=== PATIENT | male | born 1965 | race Caucasian/White ===

== ENCOUNTER 2022-04-15 18:51 | Observation (INO) ==
[2022-04-15] MEDS ORDERED: Iopamidol - 370 500 ML MLS IVP ONE (19:29)
[2022-04-15 20:17] LABS: Basophils # 0.1 K/mcL (0.0-0.2); Basophils % 0.3 %; Eosinophils # 0.1 K/mcL (0.0-0.6); Eosinophils % 0.6 %; Hematocrit 39.9 % (37.5-50.1); Hemoglobin 13.8 g/dL (12.9-16.9); Immature Granulocytes % 0.6 % (0-4); Lymphocytes # 1.4 K/mcL (0.6-4.6); Lymphocytes % 8.1 %; Mean Corpuscular HGB Conc 34.6 g/dL (31.6-35.5); Mean Corpuscular Hemoglobin 31.9 pg (28.0-33.3); Mean Corpuscular Volume 92.4 fL (83.0-100.0); Mean Platelet Volume 11.8 fL (9.4-12.4); Monocytes # 1.2 K/mcL (0.0-1.3); Neutrophils # 14.2 K/mcL (1.6-8.9); Platelet Count 155 K/mcL (140-400); Red Blood Count 4.32 M/mcL (4.19-5.50); Red Cell Distribution Width 13.2 % (11.5-14.5); Segmented Neutrophils % 83.4 %
[2022-04-15] MEDS ORDERED: Aspirin 81 MG TAB.CHEW PO ONE (20:28)
[2022-04-15 20:37] LABS: BUN/Creatinine Ratio 17 (6-26); Blood Urea Nitrogen 19 mg/dL (6-20); Calcium 8.8 mg/dL (8.6-10.3); Carbon Dioxide 25 mEq/L (23-29); Chloride 106 mEq/L (98-107); Glucose 215 mg/dL (70-105); Osmolality,Calculated 291 (280-300); Potassium 3.7 mEq/L (3.5-5.1); Sodium 136 mEq/L (136-145); Troponin I < 0.03 ng/mL (< 0.04)
[2022-04-15 20:57] LABS: Prothrombin Time 11.4 Seconds (9.4-12.1)
[2022-04-15 21:15] LABS: Alanine Aminotransferase 27 Units/L (7-52); Albumin 4.1 g/dL (3.5-5.7); Alkaline Phosphatase 59 Units/L (34-104); Aspartate Amino Transferase 21 Units/L (13-39); Bilirubin,Direct 0.1 mg/dL (0.0-0.2); Bilirubin,Indirect 0.6 mg/dL (0.0-1.0); Bilirubin,Total 0.7 mg/dL (0.3-1.0); Globulin 2.1 g/dL (2.4-3.5); Lipase 22 Units/L (11-82); Total Protein 6.2 g/dL (6.4-8.9)
[2022-04-15 21:17] LABS: Amphetamine Screen,Urine Negative ng/mL (Cutoff=1000); Barbiturate Screen,Urine Negative ng/mL (Cutoff=200); Benzodiazepines Screen,Urine Positive ng/mL (Cutoff=200); Cannabinoid Screen,Urine Positive ng/mL (Cutoff = 50); Cocaine Screen,Urine Negative ng/mL (Cutoff= 300); Opiate Screen,Urine Negative ng/mL (Cutoff=300); Phencyclidine Screen,Urine Negative ng/mL (Cutoff=25)
[2022-04-15] MEDS: Nitroglycerin 0.4 MG TAB.SUBL SL SCH ×3 (22:07→22:19)
[2022-04-16] MEDS ORDERED: Acetaminophen 325 MG TABLET PO PRN (01:27)
[2022-04-16] MEDS ORDERED: Ondansetron 4 MG/2 ML VIAL IVP PRN (01:27)
[2022-04-16] MEDS ORDERED: Naloxone 0.4 MG/ML INJ IVP PRN (01:27)
[2022-04-16] MEDS ORDERED: Dextrose Gel 15 GM/37.5 ML TUBE PO PRN ×2 (01:35)
[2022-04-16] MEDS ORDERED: D5% in Water 1,000 ML IVC PRN (01:35)
[2022-04-16] MEDS ORDERED: *HR* Dextrose 50 % in Water (Syg) 50 ML SYRINGE IVP PRN (01:35)
[2022-04-16] MEDS ORDERED: Fluconazole 400 MG/200 ML 400 MG/200 ML BAG IVPB SCH ×2 (02:00)
[2022-04-16] MEDS: Insulin LISPRO 300 UNITS/3 ML VIAL SUBQ SCH ×5 (03:30→18:35)
[2022-04-16] MEDS: Insulin DETEMIR 100 UNIT/ML X5UNITS SUBQ SCH ×2 (03:30→21:11)
[2022-04-16 04:02] LABS: Hematocrit 42.1 % (37.5-50.1); Hemoglobin 13.9 g/dL (12.9-16.9); Mean Platelet Volume 11.5 fL (9.4-12.4); Platelet Count 159 K/mcL (140-400); Red Blood Count 4.48 M/mcL (4.19-5.50); Red Cell Distribution Width 13.3 % (11.5-14.5); White Blood Count 9.5 K/mcL (4.3-11.1)
[2022-04-16 04:21] LABS: BUN/Creatinine Ratio 23 (6-26); Blood Urea Nitrogen 21 mg/dL (6-20); Calcium 8.8 mg/dL (8.6-10.3); Carbon Dioxide 27 mEq/L (23-29); Chloride 105 mEq/L (98-107); Glucose 152 mg/dL (70-105); Osmolality,Calculated 300 (280-300); Potassium 3.5 mEq/L (3.5-5.1); Sodium 142 mEq/L (136-145)
[2022-04-16 04:22] LABS: Troponin I < 0.03 ng/mL (< 0.04)
[2022-04-16] MEDS: Gabapentin 300 MG CAPSULE PO SCH (20:40)
[2022-04-16] MEDS: atenoloL 25 MG TABLET PO SCH (20:41)
[2022-04-16] MEDS: clonazePAM 1 MG TABLET PO SCH (20:41)
[2022-04-17 04:28] VITALS: O2SAT 95
[2022-04-17] MEDS ORDERED: Regadenoson 0.4 MG/5 ML SYRINGE IVP ONE (06:38)
[2022-04-17] MEDS ORDERED: Multivit/Ca/Min/Fe/FA 1 TAB TABLET PO SCH (09:00)
[2022-04-17] MEDS: Insulin LISPRO 300 UNITS/3 ML VIAL SUBQ SCH ×2 (09:08→12:25)
[2022-04-17] MEDS: Gabapentin 300 MG CAPSULE PO SCH ×2 (09:13→14:57)
[2022-04-17] MEDS: clonazePAM 1 MG TABLET PO SCH (09:13)
[2022-04-17] MEDS: atenoloL 25 MG TABLET PO SCH (09:13)
[2022-04-17 11:43] VITALS: BP 133/73; PULSE 67; TEMP 98
== END 2022-04-17 15:52 | disposition home or self-care (01) ==
LOC: EMEROOARM 18:51 → 3BNU 18:51 → SUATTDRO 04-16 11:08 → 3BNU 04-16 13:09
PROVIDERS: ADMIT Internal Medicine; ATTEND Pharmacist